=== PATIENT | male | born 1990 | race Two or more races ===

== ENCOUNTER 2024-11-09 03:28 | Emergency (ER) | payer MEDICAID, OTHER, SELFPAY ==
--- NOTE | ~2024-11-09 | CT_ITS ---
CLINICAL HISTORY: R flank pain CT abdomen and pelvis without IV or oral contrast Comparison: None Findings: Lung bases show no active disease. No dependent layering pleural effusions. The heart is not enlarged. 4 mm obstructing calculus right UVJ with renal edema and mild hydroureteronephrosis on the right.Bilateral punctate caliceal stones. No evidence of obstructive uropathy on the left. Evaluation of the liver, spleen, adrenal glands and pancreas demonstrates no lesions. It should be noted that isodense masses may be obscured in the absence of intravenous contrast. No radiopaque gallstones. Normal appendix. No pathologically enlarged lymph nodes . No ascites demonstrated. Slight increased stool burden. Partially decompressed urinary bladder. No vertebral body compression fractures or spondylolisthesis. No bony destructive lesions. Impression: 1. 4 mm obstructing calculus right UVJ with renal edema and mild hydroureteronephrosis on the right 2. Bilateral nephrolithiasis. No evidence of obstructive uropathy on the left 3. Ancillary findings as described This document has been electronically signed by: Matias Merino MD on 11/09/2024 06:46:17
[2024-11-09 03:39] VITALS: BP 124/68; PULSE 75; RESP 18; TEMP 36.4; O2SAT 99; BMI 23.3
[2024-11-09 04:45] LABS: Appearance Urine Clear; Glucose Urine UA Negative (Negative); Hematocrit 40.0 % (42.0-52.0); Hemoglobin 13.8 g/dl (14.0-18.0); Mean Corpuscular HGB Conc 34.5 g/dl (31.0-36.0); Mean Corpuscular Hemoglobin 27.7 pg (27.0-33.0); Mean Corpuscular Volume 80.2 fL (80.0-98.0); NRBC Abs Auto 0.000 X10*3/uL (0.0-0.012); NRBC Pct Auto 0.0 /100WBC (0.0-0.2); PH 8.0 (5.0-9.0); Platelet Count 286 X10*3/uL (160-400); Red Blood Count 4.99 X10*6/uL (4.60-5.80); Specific Gravity - Urine 1.020 (1.005-1.025); UMIC TRIGGER UA YES; White Blood Count 17.4 X10*3/uL (4.8-10.8)
[2024-11-09 04:57] LABS: COVID-19 Test Negative (Negative); IDNOW Serial# 55D5AD1C; IDNOW Serial# 58CA691E; Influenza B2 Negative (Negative)
[2024-11-09 04:58] LABS: Alanine Aminotransferase 16 U/L (0-40); Albumin Level 4.9 g/dL (3.5-5.0); Alkaline Phosphatase 94 U/L (39-117); Anion Gap 14 (12-20); Aspartate Amino Transferase 30 U/L (5-37); Blood Urea Nitrogen 18 mg/dL (9-16); Calcium 9.6 mg/dL (8.4-10.2); Carbon Dioxide 21 mmol/L (22-29); Chloride 111 mmol/L (96-108); Creatinine Clr Calc Pharmacy 84.2; Estimated Glomerular Filt Rate 59; Lipase 27 U/L (8-78); Magnesium 1.8 mg/dL (1.6-2.6); Potassium 3.8 mmol/L (3.3-5.1); Sodium 142 mmol/L (135-145); Total Protein 7.9 g/dL (6.5-8.0)
--- NOTE | 2024-11-09 05:16 | ED.ABDPAIN ---
HPI - Abdominal Pain General Chief Complaint: Abdominal Pain Stated Complaint: abd pain Time Seen by Provider: 11/09/24 05:07 Source: patient Mode of arrival: ambulatory Limitations: no limitations History of Present Illness ED Provider: Dr. Frances Pfeiffer HPI narrative: Patient comes to the emergency room complaining of right-sided flank pain that started 3 hours ago. Patient complaining of nausea vomiting. Patient denies fever chills. Denies hematuria or dysuria. Patient states that he has had history of kidney stones and it feels very similar. Related Data Previous Rx's ?Medication ?Instructions ?Recorded ketorolac 10 mg tablet 10 mg PO Q8H #15 tabs 11/09/24 ondansetron HCl 4 mg tablet 4 mg PO Q6H PRN nausea and 11/09/24 vomiting #14 tabs prednisone 10 mg tablet 10 mg PO DAILY #3 tabs 11/09/24 tamsulosin 0.4 mg capsule 0.4 mg PO DAILY #14 caps 11/09/24 Allergies Allergy/AdvReac Type Severity Reaction Status Date / Time No Known Allergies Allergy Verified 11/09/24 03:42 Review of Systems Review of Systems Constitutional : No Weight loss, No Fever, No Chills, No Night Sweats, No Fatigue, No Malaise ENT/Mouth : No Hearing loss, No Ear Pain, No Nasal Congestion, No Sinus Pain, No Hoarseness, No sore throat, No Rhinorrhea, No Swallowing Difficulty Eyes: No Eye Pain, No Swelling, No Redness, No Foreign Body, No Discharge, No Vision Changes Cardiovascular : No Chest Pain, No SOB, No Dyspnea on Exertion, No Orthopnea, No Edema, No Palpitations Respiratory : No Cough, No Sputum, No Wheezing, No Smoke Exposure, No Dyspnea Gastrointestinal : No Nausea, No Vomiting, No Diarrhea, No Constipation, No abdominal Pain, No Hematochezia, No Melena Genitourinary : no irregular bleeding, No Dysuria, No Urinary Frequency, No Hematuria, No Urinary Incontinence, No Urgency, complaining of right-sided Flank Pain, No Urinary Flow Changes, No Hesitancy Musculoskeletal : No joint pain, No Myalgias, No Joint Swelling Skin : No Skin Lesions, No rash Neuro : No Weakness, No Numbness, No Paresthesias, No Loss of Consciousness, No Dizziness, No Headache Psych : No Anxiety/Panic, No Depression, No SI/HI/AH/VH, No Social Issues, Heme/Lymph: No Bruising, No Bleeding,No Lymphadenopathy Endocrine : No Polyuria, No Polydipsia, No Temperature Intolerance [facility] Past Medical History Medical History (Updated 11/09/24 @ 07:06 by Frances Pfeiffer MD) Kidney stones Social History Social History Advance Directives: No Advance Directives Information Provided: Yes Physical Exam ED Vital Signs: Vital Signs - 24 hr 11/09/24 03:39 11/09/24 05:46 Temperature 97.5 F 97.6 F Pulse Rate 75 62 Respiratory Rate 18 16 Blood Pressure 124/68 114/58 L Pulse Oximetry 99 100 Oxygen Delivery Method Room Air Room Air BMI result Body Mass Index 23.3 Const Other: Appearance: Alert. Oriented X3. Very uncomfortable Eyes: Pupils equal, round and reactive to light. ENT: Pharynx normal. Neck: Normal inspection. Neck supple. No lymph nodes noted. No crepitus CVS: Normal heart rate and rhythm. Pulses normal. Normal S1 and S2 Respiratory: No respiratory distress. Breath sounds normal. No Wheezing. No rales Abdomen: Soft and nontender. No rigidity. No distention. Positive CVA tenderness in the right, no pain at McBurney's point no rebound or guarding Skin: Skin warm, dry, pale,. Normal skin turgor. Extremities: No lower extremity edema. No Lacerations. No Rash Neuro: Oriented X 3. No motor deficit. No sensory deficit. Moving all extremities. No slurred speech. CN 2 through 12 grossly intact Psych: calm, cooperative, normal affect Course Course Course Narrative: Patient complaining of right flank pain. Patient has history of kidney stones. Patient very likely passing a kidney stone. Patient receiving IV fluids, ketorolac and Zofran. CT scan of the abdomen/pelvis pending Medical Decision Making Medical Decision Making MDM Narrative: My interpretation of labs: Patient's white blood cell count 17.4, likely reactive leukocytosis, chemistry does not show any acute abnormality, normal creatinine. Urinalysis negative for UTI, large amount of blood due to the kidney stone CT scan shows a 4 mm stone at the right UVJ Patient states that after the ketorolac, he feels much better Patient instructed to follow-up with urology Differential Diagnosis Differential Diagnoses: The differential diagnosis associated with the presentation includes (Urolithiasis, pyelonephritis, UTI, musculoskeletal pain) Admission/Observation Consideration of admission/observation: Escalation of care including admission/observation considered (Given patient's initial presentation, observation/admission for pain control was considered) Lab Data MDM Lab Attestation statement: I reviewed the patient's lab results. 11/09/24 04:32 11/09/24 04:32 Labs: Lab Results 11/09/24 Range/Units 04:32 WBC 17.4 H (4.8-10.8) X10*3/uL RBC 4.99 (4.60-5.80) X10*6/uL Hgb 13.8 L (14.0-18.0) g/dl Hct 40.0 L (42.0-52.0) % MCV 80.2 (80.0-98.0) fL MCH 27.7 (27.0-33.0) pg MCHC 34.5 (31.0-36.0) g/dl RDW 12.7 (11.0-16.0) % Plt Count 286 (160-400) X10*3/uL MPV 9.6 (9.4-12.4) fL Absolute Nucleated RBC 0.000 (0.0-0.012) X10*3/uL Nucleated RBC % (auto) 0.0 (0.0-0.2) /100WBC Sodium 142 (135-145) mmol/L Potassium 3.8 (3.3-5.1) mmol/L Chloride 111 H (96-108) mmol/L Carbon Dioxide 21 L (22-29) mmol/L Anion Gap 14 (12-20) BUN 18 H (9-16) mg/dL Creatinine 1.37 (0.5-1.4) mg/dL Estim Creat Clear Calc 84.2 Estimated GFR 59 Random Glucose 150 H (60-115) mg/dL Calcium 9.6 (8.4-10.2) mg/dL Magnesium 1.8 (1.6-2.6) mg/dL Total Bilirubin 0.3 (0.0-1.0) mg/dL Direct Bilirubin 0.1 (0.0-0.5) mg/dL AST 30 (5-37) U/L ALT 16 (0-40) U/L Alkaline Phosphatase 94 (39-117) U/L Total Protein 7.9 (6.5-8.0) g/dL Albumin 4.9 (3.5-5.0) g/dL Lipase 27 (8-78) U/L Urine Color Yellow Urine Appearance Clear Urine pH 8.0 (5.0-9.0) Ur Specific [place] 1.020 (1.005-1.025) Urine Protein 30 (1+) H (Neg-Trace) mg/dL Urine Glucose (UA) Negative (Negative) mg/dL Urine Ketones Trace (Negative) mg/dL Urine Blood Large (3+) H (Negative) Urine Nitrite Negative (Negative) Ur Leukocyte Esterase Trace H (Negative) Urine RBC >20 H (0-2) /HPF Urine WBC 0-5 (0-5) /HPF Ur Squamous Epith Cells 0-2 (0-2) /HPF Urine Bacteria None Seen (None Seen) Hyaline Casts 0-2 (0-2) /LPF COVID-19 (PAU) Negative (Negative) COVID-19 Clin Com See Note Influenza Type A (HARRIET) Negative (Negative) Influenza Type B (HARRIET) Negative (Negative) Influenza A & B Note See Note Independent Interpretation I performed an independent interpretation of an: CT Scan Radiology Impression Discussion of test interpretation with radiology: I have reviewed the radiologist's reading. Radiologist Impression: Lung bases show no active disease. No dependent layering pleural effusions. The heart is not enlarged. 4 mm obstructing calculus right UVJ with renal edema and mild hydroureteronephrosis on the right.Bilateral punctate caliceal stones. No evidence of obstructive uropathy on the left. Evaluation of the liver, spleen, adrenal glands and pancreas demonstrates no lesions. It should be noted that isodense masses may be obscured in the absence of intravenous contrast. No radiopaque gallstones. Normal appendix. No pathologically enlarged lymph nodes . No ascites demonstrated. Slight increased stool burden. Partially decompressed urinary bladder. No vertebral body compression fractures or spondylolisthesis. No bony destructive lesions. Impression: 1. 4 mm obstructing calculus right UVJ with renal edema and mild hydroureteronephrosis on the right 2. Bilateral nephrolithiasis. No evidence of obstructive uropathy on the left 3. Ancillary findings as described Medications Administered Discontinued Medications Generic Name Dose Route Start Last Admin Trade Name Freq PRN Reason Stop Dose Admin Sodium Chloride 1,000 mls @ 999 mls/hr 11/09/24 05:15 11/09/24 06:14 Ns IV 11/09/24 06:15 Infused .Q1H1M LINA Infusion Ketorolac Tromethamine 30 mg 11/09/24 05:14 11/09/24 05:17 Ketorolac Tromethamine 30 Mg/Ml Vial IVPUSH 11/09/24 05:15 30 mg ONCE ONE Administration Ondansetron HCl 4 mg 11/09/24 05:06 11/09/24 05:12 Ondansetron Hcl 4 Mg/2 Ml Vial IVPUSH 11/09/24 05:07 4 mg ONCE ONE Administration Critical Care Time Critical Care Time Critical Care Time: Yes Total Critical Care Time: 45 Attestation: I have personally provided critical care time. Time includes review of lab data, radiology results, discussion with consultants, and monitoring for potential decompensation. Intervention performed as documented. Discharge Plan Discharge Clinical Impression: Ureterolithiasis Patient Disposition: Home, Self-Care Instructions: Ureteral Stones (ED) Additional Instructions: Please follow-up with your primary care physician tomorrow. If you have any worsening or new symptoms, please return to the emergency room or call 911 [facility] will be contacting you within 2 business?days after being discharged from the Emergency?Department.? During this?phone call, they will inform you when your follow up appointment will be scheduled. If you have not received a call from [facility] after 2 business?days, please call the?office at [phone]. Prescriptions: New ketorolac 10 mg tablet 10 mg PO Q8H Qty: 15 0RF Rx Instructions: Do not use this medication with NSAIDs such as ibuprofen, only Tylenol if needed prednisone 10 mg tablet 10 mg PO DAILY Qty: 3 0RF ondansetron HCl 4 mg tablet 4 mg PO Q6H PRN (Reason: nausea and vomiting) Qty: 14 0RF tamsulosin 0.4 mg capsule 0.4 mg PO DAILY Qty: 14 0RF Referrals: Jackson Ingram MD [Physician, Urology] Stand Alone Forms: Work/School Release Print Language: Wolof
--- NOTE | 2024-11-09 05:20 | PC.NURSE ---
patient vomiting in room, restless in obvious discomfort. verbal order from provider for fluids and zofran, IV established. medicated per the MAR for pain, family at bedside.
[2024-11-09 05:46] VITALS: BP 114/58; PULSE 62; RESP 16; TEMP 36.4; O2SAT 100
--- NOTE | 2024-11-09 05:48 | PC.NURSE ---
patient appears more comfortable at this time, resting quietly with even and unlabored respirations. call haile within reach
[2024-11-09 07:23] VITALS: BP 114/58; PULSE 62; RESP 16; TEMP 36.4; O2SAT 100
== END 2024-11-09 07:23 | disposition home or self-care (01) ==
PROVIDERS: Emergency Provider Emergency Medicine
DX: N13.2 Hydronephrosis with renal and ureteral calculous obstruction (principal); R10.31 Right lower quadrant pain; R11.2 Nausea with vomiting, unspecified; Z03.818 Encounter for observation for suspected exposure to other biological agents ruled out; Z87.442 Personal history of urinary calculi
CPT/HCPCS: 36415; 74176; 80053; 81001; 82248; 83690; 83735; 85027; 87502; 87635; 96361; 96374; 96375; 99285; 99291; J1885; J2405

== ENCOUNTER → 2024-11-09 05:15 | Outpatient (BNV) | payer MEDICAID, SELFPAY | PROVIDERS: Emergency Provider Emergency Medicine; Visit Provider Radiology Diagnostic Radiology | DX: N20.0 Calculus of kidney (principal) | CPT/HCPCS: 74176 ==